=== PATIENT | male | born 1955 | race Caucasian/White ===

== ENCOUNTER 2025-05-24 16:42 | Inpatient (IN) | payer MEDICARE, OTHER ==
[~2025-05-24] VITALS: Ht 175.3 cm; Wt 60.3 kg
[~2025-05-24 16:42] MED LIST: ATOR40TA70 PO; CARV3.1242 PO; EMPA25TA PO; FURO40TA5 PO; LEVO100T9 PO; LOSA25TA26 PO; QUET50TA PO; SPIR25TA PO; TAMS-54 PO
[2025-05-24] MEDS ORDERED: METHYLPREDNISOLONE SOD SUCC 125MG/2ML (ACT-O-VIAL) IV ONE (17:00)
[2025-05-24 17:33] LABS: BG BASE EXCESS 4.8 mmol/L (-2.0-3.0); BG CARBOXYHEMOGLOBIN 0.8 % (0.5-1.5); BG DEOXYHEMOGLOBIN 2.3 % (0.0-5.0); BG FRACTION INSPIRED OXYGEN 21; BG HCO3 ACT 24.6 mmol/L (21.0-28.0); BG METHEMOGLOBIN 0.2 % (0.5-1.5); BG OXYGEN SATURATION 97.7 % (94.0-98.0); BG OXYHEMOGLOBIN 96.7 % (94.0-98.0); BG PCO2 24.6 mmHg (35.0-48.0); BG PH 7.618 (7.350-7.450); BG PO2 93.0 mmHg (83.0-108.0); BG SAMPLE SITE RIGHT RADIAL; BG TOTAL HEMOGLOBIN 14.5 g/dL (13.5-17.5); BG VENT MODE ROOM AIR
[2025-05-24] MEDS: IPRATROPIUM BROMIDE (0.02%) 0.5MG/2.5ML NEB HHN SCH (18:08)
[2025-05-24] MEDS: ALBUTEROL (0.083%) 2.5MG/3ML NEB HHN SCH (18:09)
[2025-05-24 18:10] VITALS: PULSE 106; RESP 13; O2SAT 97
[2025-05-24] MEDS: PIPERACILLIN/TAZO 3.375G/50ML 50 ML IV STA (19:16)
[2025-05-24] MEDS: SODIUM CHLORIDE 0.9% 1,000 ML IV ONE (19:16)
[2025-05-24] MEDS: METHYLPREDNISOLONE SOD SUCC 125MG/2ML (ACT-O-VIAL) IV SCH (19:16)
[2025-05-24 19:19] LABS: BASOPHILS % 0.1 % (0.0-2.0); EOSINOPHILS % 0.0 % (0.0-5.0); HEMATOCRIT. 42.8 % (42.0-52.0); HEMOGLOBIN. 13.9 g/dL (14.0-18.0); LYMPHOCYTES % 12.8 % (20.0-50.0); MEAN PLATELET VOLUME 8.2 fl (7.4-10.4); MONOCYTES % 8.6 % (2.0-8.0); NEUTROPHILS % 78.5 % (40.0-76.0); PLATELET 251 x1000/uL (130-400); RED BLOOD CELL COUNT 4.97 mill/uL (4.7-6.1); RED CELL DISTRIBUTION WIDTH 21.8 % (11.6-14.6)
[2025-05-24 19:33] LABS: ETHANOL BLOOD < 10 mg/dL (<10); UREA NITROGEN BLOOD 23 mg/dL (9-23)
[2025-05-24 19:34] LABS: ASPARTATE AMINOTRANSFERASE 29 IU/L (<34); BILIRUBIN DIRECT 0.7 mg/dL (<=3.0); INR 1.3
[2025-05-24 19:35] LABS: BILIRUBIN TOTAL 1.8 mg/dL (0.1-1.0); PROTEIN TOTAL 7.8 g/dL (6.0-8.3)
[2025-05-24 19:36] LABS: CREATININE 1.6 mg/dL (0.6-1.3)
[2025-05-24 19:38] LABS: TROPONIN I HIGH SENSITIVITY 428 ng/L (3.0-53)
[2025-05-24] MEDS: SODIUM CHLORIDE 0.9% (SEPSIS BOLUS) IV ONE (20:08)
[2025-05-24] MEDS ORDERED: DOCUSATE SODIUM 100MG CAPSULE PO PRN (20:30)
[2025-05-24] MEDS ORDERED: GUAIFENESIN 200MG/10ML SUGAR FREE UDC PO PRN (20:30)
[2025-05-24] MEDS ORDERED: CLONIDINE 0.1MG TABLET PO PRN (20:30)
[2025-05-24] MEDS ORDERED: MAGNESIUM/ALUMINUM HYDROXIDE/SIMETHICONE 30ML UDC PO PRN (20:30)
[2025-05-24] MEDS ORDERED: ACETAMINOPHEN 325MG TABLET PO PRN (20:30)
[2025-05-24] MEDS ORDERED: ONDANSETRON HCL 4MG/2ML INJ IV PRN (20:30)
[2025-05-24] MEDS ORDERED: IPRATROPIUM/ALBUTEROL 0.5-3(2.5)MG/3ML NEB HHN PRN (20:30)
[2025-05-24] MEDS ORDERED: HYDROCODONE/ACETAMINOPHEN 5/325MG TABLET PO PRN (21:00)
[2025-05-24] MEDS: VANCOMYCIN 1.5GM PMX (XELLIA) 300 ML IV SCH (22:33)
[2025-05-24] MEDS: IOHEXOL-350 100 ML BOTTLE ONE (23:07)
[2025-05-24 23:35] VITALS: BP 103/64; PULSE 92; RESP 18; TEMP 36.5292
[2025-05-25] VITALS (9 sets, daily range): BP systolic 96–103; BP diastolic 60–66; PULSE 62–92; RESP 18–20; TEMP 36.3–36.6; O2SAT 96–99
[2025-05-25] MEDS: SODIUM CHLORIDE 0.45% 1,000 ML IV ONE (05:26)
[2025-05-25] MEDS: PIPERACILLIN/TAZO 3.375G/50ML 50 ML IV SCH (05:29)
[2025-05-25] MEDS: KCL 20MEQ/100ML PREMIX 100 ML IV NR (05:35)
[2025-05-25] MEDS: LORAZEPAM 2MG/ML UD SYRINGE IV PRN (05:50)
[2025-05-25] MEDS: ENOXAPARIN 60MG/0.6ML SYR SUBCUT SCH (06:59)
[2025-05-25] MEDS ORDERED: SODIUM CHLORIDE 0.9% 250 ML IV NR (07:00)
[2025-05-25] MEDS ORDERED: NALOXONE HCL 0.4MG/ML VIAL IV PRN (07:00)
[2025-05-25] MEDS: SODIUM CHLORIDE 0.9% 500 ML IV ONE (07:06)
[2025-05-25 07:10] LABS: BASOPHILS % 0.0 % (0.0-2.0); EOSINOPHILS % 0.0 % (0.0-5.0); HEMATOCRIT. 37.4 % (42.0-52.0); HEMOGLOBIN. 12.4 g/dL (14.0-18.0); LYMPHOCYTES % 8.5 % (20.0-50.0); MEAN PLATELET VOLUME 8.5 fl (7.4-10.4); MONOCYTES % 3.2 % (2.0-8.0); NEUTROPHILS % 88.3 % (40.0-76.0); PLATELET 216 x1000/uL (130-400); RED BLOOD CELL COUNT 4.37 mill/uL (4.7-6.1); RED CELL DISTRIBUTION WIDTH 22.1 % (11.6-14.6)
[2025-05-25 07:30] LABS: T4 FREE 0.81 ng/dL (0.89-1.76)
[2025-05-25 07:32] LABS: ADD RBC MORPHOLOGY YES
[2025-05-25 07:35] LABS: CREATININE 1.2 mg/dL (0.6-1.3); TRIGLYCERIDE 114.0 mg/dL (0-150); UREA NITROGEN BLOOD 22.0 mg/dL (9-23)
[2025-05-25 07:36] LABS: LDL CHOLESTEROL 86.0 mg/dL (5-100)
[2025-05-25] MEDS: IPRATROPIUM/ALBUTEROL 0.5-3(2.5)MG/3ML NEB HHN SCH (08:07)
[2025-05-25 08:18] LABS: TROPONIN I HIGH SENSITIVITY 297.0 ng/L (3.0-53)
[2025-05-25] MEDS ORDERED: ENOXAPARIN 40MG/0.4ML SYR SUBCUT SCH (09:00)
[2025-05-25] MEDS: PANTOPRAZOLE SODIUM 40 MG/VIAL IV SCH (09:00)
[2025-05-25] MEDS: LEVOTHYROXINE SODIUM 100MCG TABLET PO SCH (09:05)
[2025-05-25] MEDS: QUETIAPINE FUMARATE 50MG TABLET PO SCH (09:05)
[2025-05-25] MEDS: POLYETHYLENE GLYCOL 3350 (17GM) 1 DOSE PACK PO SCH (09:06)
[2025-05-25] MEDS: TAMSULOSIN HCL 0.4MG SR CAPSULE PO SCH (09:12)
[2025-05-25 15:57] LABS: PLATELET ESTIMATE NORMAL
[2025-05-25] MEDS ORDERED: VANCOMYCIN 750MG PREMIX 150 ML IV SCH (16:00)
[2025-05-25] MEDS: SODIUM CHLORIDE 0.9% 100 ML IV ONE (16:30)
[2025-05-25] MEDS: POTASSIUM CHLORIDE 20MEQ TABLET SR PO NR (19:15)
[2025-05-25] MEDS: VANCOMYCIN 1.25GM/250ML 250 ML IV SCH (20:47)
[2025-05-25 22:20] LABS: PLATELET 210 x1000/uL (130-400); RED BLOOD CELL COUNT 4.13 mill/uL (4.7-6.1); RED CELL DISTRIBUTION WIDTH 22.1 % (11.6-14.6)
[2025-05-25 22:47] LABS: TROPONIN I HIGH SENSITIVITY 133 ng/L (3.0-53)
[2025-05-26] VITALS (9 sets, daily range): BP systolic 91–135; BP diastolic 57–98; PULSE 81–92; RESP 18–20; TEMP 36.2–37.1; O2SAT 94–99
[2025-05-26] MEDS: POTASSIUM CHLORIDE 20MEQ TABLET SR PO SCH (09:30)
[2025-05-26 14:15] LABS: LDL CHOLESTEROL 74.0 mg/dL (5-100); TRIGLYCERIDE 125.0 mg/dL (0-150)
[2025-05-26 14:19] LABS: T4 FREE 1.05 ng/dL (0.89-1.76)
[2025-05-26 17:15] LABS: CREATINE KINASE MB FRACTION 1.2 ng/mL (0.5-3.6)
[2025-05-26 17:17] LABS: TROPONIN I HIGH SENSITIVITY 72.0 ng/L (3.0-53)
[2025-05-27] VITALS (10 sets, daily range): BP systolic 93–120; BP diastolic 36–68; PULSE 65–96; RESP 18–20; TEMP 36.1–36.5; O2SAT 96–98
[2025-05-27 00:47] LABS: CREATINE KINASE MB FRACTION 1.0 ng/mL (0.5-3.6)
[2025-05-27 01:04] LABS: TROPONIN I HIGH SENSITIVITY 62.0 ng/L (3.0-53)
[2025-05-27 07:08] LABS: CREATINE KINASE MB FRACTION 0.9 ng/mL (0.5-3.6)
[2025-05-27 07:13] LABS: CREATININE 1.0 mg/dL (0.6-1.3); UREA NITROGEN BLOOD 15 mg/dL (9-23)
[2025-05-27 07:21] LABS: TROPONIN I HIGH SENSITIVITY 56 ng/L (3.0-53)
[2025-05-27] MEDS: POTASSIUM CHLORIDE 20MEQ TABLET SR PO SCH ×2 (09:46→14:27)
[2025-05-27] MEDS: ENOXAPARIN 60MG/0.6ML SYR SUBCUT SCH (17:05)
[2025-05-28] VITALS (7 sets, daily range): BP systolic 84–104; BP diastolic 42–57; PULSE 43–91; RESP 17–22; TEMP 35.9–37.2; O2SAT 94–98
[2025-05-28] MEDS: FAMOTIDINE 20MG/2ML VIAL IV SCH (09:00)
[2025-05-28] MEDS: ACETAMINOPHEN 325MG TABLET PO PRN (14:36)
[2025-05-28 16:20] LABS: CREATININE 0.9 mg/dL (0.6-1.3); UREA NITROGEN BLOOD 11 mg/dL (9-23)
[2025-05-28 16:22] LABS: ASPARTATE AMINOTRANSFERASE 17 IU/L (<34); BILIRUBIN TOTAL 0.7 mg/dL (0.1-1.0); PHOSPHORUS 1.8 mg/dL (2.5-4.9)
[2025-05-28 16:25] LABS: PROTEIN TOTAL 5.2 g/dL (6.0-8.3)
[2025-05-29] VITALS (10 sets, daily range): BP systolic 96–139; BP diastolic 57–80; PULSE 67–103; RESP 18–22; TEMP 36–37.1; O2SAT 97–100
[2025-05-29] MEDS: ASPIRIN 81MG TABLET PO SCH (19:30)
[2025-05-30] VITALS: BP 109/72; PULSE 88; RESP 20; TEMP 36.2; O2SAT 98
[2025-05-30 03:08] VITALS: PULSE 92; RESP 20; O2SAT 98
[2025-05-30 04:00] VITALS: BP 104/71; PULSE 96; RESP 18; TEMP 36.2; O2SAT 98
[2025-05-30 08:00] VITALS: BP 138/86; PULSE 86; RESP 18; TEMP 36.6; O2SAT 100
[2025-05-30] MEDS ORDERED: FURO40TA5 PO (11:02)
[2025-05-30] MEDS ORDERED: TAMS-54 PO (11:02)
[2025-05-30] MEDS ORDERED: LOSA25TA26 PO (11:02)
[2025-05-30] MEDS ORDERED: EMPA25TA PO (11:02)
[2025-05-30] MEDS ORDERED: ATOR40TA70 PO (11:02)
[2025-05-30] MEDS ORDERED: QUET50TA PO (11:02)
[2025-05-30] MEDS ORDERED: LEVO100T9 PO (11:02)
[2025-05-30] MEDS ORDERED: CARV3.1242 PO (11:02)
[2025-05-30] MEDS ORDERED: SPIR25TA PO (11:02)
[2025-05-30 12:00] VITALS: BP 127/76; PULSE 80; RESP 14; TEMP 36.7; O2SAT 95
[2025-05-30 13:31] VITALS: BP 127/76; PULSE 80; RESP 14; TEMP 98
== END 2025-05-30 17:03 | disposition home or self-care (01) | DRG 175 ==
LOC: ER 17:11 → EDBEDREQSVC 18:45 → 7WST 19:48 → EDBEDREQTM 20:08 → EDBEDREQ 20:08 → ENRESERV 21:41 → 7WST 05-26 13:30
PROVIDERS: ADMIT Internal Medicine; ATTEND Internal Medicine
DX: I26.99 Other pulmonary embolism without acute cor pulmonale (principal); G93.41 Metabolic encephalopathy; J96.01 Acute respiratory failure with hypoxia; L89.153 Pressure ulcer of sacral region, stage 3; L89.623 Pressure ulcer of left heel, stage 3; L89.613 Pressure ulcer of right heel, stage 3; I21.A1 Myocardial infarction type 2; J44.1 Chronic obstructive pulmonary disease with (acute) exacerbation; N17.9 Acute kidney failure, unspecified; I50.22 Chronic systolic (congestive) heart failure; I42.9 Cardiomyopathy, unspecified; E87.0 Hyperosmolality and hypernatremia; D68.59 Other primary thrombophilia; E86.0 Dehydration; E87.6 Hypokalemia; N40.0 Benign prostatic hyperplasia without lower urinary tract symptoms; E03.9 Hypothyroidism, unspecified; K59.09 Other constipation; R45.1 Restlessness and agitation; D63.8 Anemia in other chronic diseases classified elsewhere; E11.9 Type 2 diabetes mellitus without complications; E83.39 Other disorders of phosphorus metabolism; I11.0 Hypertensive heart disease with heart failure; E83.42 Hypomagnesemia; E80.6 Other disorders of bilirubin metabolism; Z74.01 Bed confinement status; Z78.1 Physical restraint status; Z86.73 Personal history of transient ischemic attack (TIA), and cerebral infarction without residual deficits; Z99.81 Dependence on supplemental oxygen
CPT/HCPCS: 36415; 36600; 71045; 71275; 80048; 80053; 80061; 80076; 80202; 80320; 82140; 82375; 82550; 82553; 82805; 83036; 83605; 83735; 83880; 84100; 84145; 84439; 84443; 84484; 85025; 85027; 85379; 87077; 87186; 93005; 93308; 93970; 94070; 94640; 94664; 96365; 98960; 99291; A4606; J0690; J1308; J1650; J2060; J2470; J2543; J2919; J3373; J3480; J7030; Q9967; G0480